=== PATIENT | female | born 1995 | race Caucasian/White ===

== ENCOUNTER 2017-09-14 18:18 | Emergency (ER) | END 2017-09-14 22:34 | disposition left against medical advice (07) ==

== ENCOUNTER 2018-11-21 15:32 | Emergency (ER) | payer MEDICAID, OTHER ==
[~2018-11-21] VITALS: Ht 157.5 cm; Wt 47.0 kg
[2018-11-21 15:54] VITALS: BP 161/117; PULSE 108; RESP 18; Ht 157.5 cm; Wt 47.0 kg
[2018-11-21] MEDS ORDERED: CEPH-443 PO (20:24)
[2018-11-21] MEDS ORDERED: SULF1TAB31 PO (20:24)
--- NOTE | 2018-11-21 20:26 | ERD ---
ER Documentation Chief Complaint Chief Complaint RIGHT FOOT/ANKLE REDNESS/PAIN X 2 DAYS HPI 23-year-old female presents with some redness and swelling around the right ankle for last 2 days. She did fall a few days ago she has large bruise on her left thigh but she does not remember injuring her right ankle. She has minimal pain is able to ambulate without limp. She denies fevers, vomiting, shortness breath or chest pain. Patient is admitted injection drug user of methamphetamine. ROS All systems reviewed and are negative except as per history of present illness. Medications Home Meds Active Scripts Cephalexin* (Keflex*) 500 Mg Capsule, 500 MG PO QID for 7 Days, CAP Prov:LUCY DONAHUE MD 11/21/18 Sulfamethoxazole/Trimethoprim* (Bactrim Ds* Tablet) 1 Each Tablet, 1 TAB PO BID for 7 Days, #14 TAB Prov:LUCY DONAHUE MD 11/21/18 Allergies Allergies: Coded Allergies: No Known Allergy (Unverified , 02/02/16) PMhx/Soc History of Surgery: No Anesthesia Reaction: No Hx Neurological Disorder: No Hx Respiratory Disorders: No Hx Cardiac Disorders: No Hx Psychiatric Problems: No Hx Miscellaneous Medical Probl: No Hx Alcohol Use: Yes (OCCASIONAL) Hx Substance Use: Yes (METH USER) Hx Tobacco Use: No Smoking Status: Never smoker FmHx Family History: No diabetes, No coronary disease, No other Physical Exam Vitals Vital Signs Date Temp Pulse Resp B/P (MAP) Pulse Ox O2 O2 Flow FiO2 Time Delivery Rate 11/21/18 98.4 108 18 161/117 100 15:54 (132) Physical Exam Const: No acute distress. Alert, [id number]. Head: Atraumatic Eyes: Normal Conjunctiva ENT: Normal External Ears, Nose and Mouth. Neck: Full range of motion. No meningismus. Resp: Clear to auscultation bilaterally Cardio: Regular rate and rhythm, no murmurs Abd: Soft, non tender, non distended. Normal bowel sounds Skin: No petechiae or rashes. Large bruising left thigh without bony tender ness, without limp. No erythema or warmth. There is some blanching redness around the right medial and lateral malleolus without effusion, bony tenderness, deformities, restricted range of motion weakness. No fluctuance. Cap refill is less than 2 seconds. Back: No midline or flank tenderness Ext: No cyanosis, or edema Neur: Awake and alert Psych: Normal Mood and Affect Results 24 hrs Current Medications Medications Dose Sig/Stephen Start Time Status Last (Trade) Ordered Route PRN Stop Time Admin Dose Reason Admin 1 tab ONCE ONCE 11/21/18 Trimethoprim/ PO 20:30 11/21/18 20:31 Sulfamethoxaz ole (Bactrim (Ds)) Cephalexin 500 mg ONCE ONCE 11/21/18 (Keflex) PO 20:30 11/21/18 20:31 Procedures/MDM Patient presents with some redness around the right ankle. Current signs or symptoms do not suggest endocarditis, myocarditis, sepsis, ostium myelitis, fracture, dislocation, as patient has minimal pain is amatory. She may have mild cellulitis. Will treat with Bactrim and Keflex, instructions for elevation, return precautions for fevers, vomiting, shortness of breath, new worsening symptoms with primary doctor. Patient was counseled on abstinence from injection drug use and primary care follow-up for testing for HIV, hepatitis, additional primary care evaluation. The patient was stable with no new complaints during the ER course. Clinically, there is no current evidence to suggest meningitis, sepsis, acute abdomen, pneumonia, stroke, acute coronary syndrome, pulmonary embolism, aortic dissection or any other emergent condition appearing to require further evaluation or hospitalization. Patient counseled regarding my diagnostic impression and care plan. Prior to discharge all questions answered. Pt agrees with treatment plan and understands strict return precautions. Pt is instructed to follow up with primary care provider within 24- 48 hours. Precautionary instructions provided including instructions to return t o the ER if not improving or for any worsening or changing symptoms or concerns. Disclaimer: Inadvertent spelling and grammatical errors are likely due to EHR/dictation software use and do not reflect on the overall quality of patient care. Also, please note that the electronic time recorded on this note does not necessarily reflect the actual time of the patient encounter. Departure Diagnosis: Primary Impression: Cellulitis Site of cellulitis: extremity Site of cellulitis of extremity: lower extremity Laterality: right Qualified Codes: L03.115 - Cellulitis of right lower limb Condition: Stable Patient Instructions: Cellulitis Additional Instructions: Elevate at home. Recheck for worsening redness, fevers, new worsening symptoms with primary care doctor. Avoid illicit drug use. TEEHEE,LUCY N. MD Nov 21, 2018 20:26
[2018-11-21] MEDS ORDERED: CEPHALEXIN 500 MG CAP PO ONE (20:30)
[2018-11-21] MEDS ORDERED: TRIMETHOPRIM/SULFAMETHOX (DS) TAB PO ONE (20:30)
== END 2018-11-21 20:36 | disposition home or self-care (01) ==
LOC: FTE 15:32
DX: S70.12XA Contusion of left thigh, initial encounter (principal); L03.115 Cellulitis of right lower limb; W19.XXXA Unspecified fall, initial encounter; Y92.9 Unspecified place or not applicable
CPT/HCPCS: Z7502; Z7610; 99283

== ENCOUNTER 2019-02-04 22:05 | Emergency (ER) | payer OTHER ==
[~2019-02-04] VITALS: Ht 160 cm; Wt 51.8 kg
[~2019-02-04 22:05] MED LIST: CEPH-443 PO; SULF1TAB31 PO
[2019-02-04 22:09] VITALS: BP 170/100; PULSE 104; RESP 20; Ht 160 cm; Wt 51.8 kg
[2019-02-05] MEDS ORDERED: ACET500C5 PO (00:14)
--- NOTE | 2019-02-05 00:18 | ERD ---
ER Documentation Chief Complaint Chief Complaint ring got stuck left 5th finger since yesterday, c/o pain/swelling HPI 23-year-old female with no reported past medical history presents to ED after having a small ring stuck to left fifth digit of left upper extremity. With complaint of pain and swelling to digit. Able to move and wiggle all fingers at the time of examination. She otherwise without complaint. ROS All systems reviewed and are negative except as per history of present illness. Medications Home Meds Active Scripts Acetaminophen* (Tylophen*) 500 Mg Capsule, 1 CAP PO Q6H PRN for PAIN AND OR ELEVATED TEMP, #20 CAP Prov:OBDULIA KABA PA-C 02/05/19 Cephalexin* (Keflex*) 500 Mg Capsule, 500 MG PO QID for 7 Days, CAP Prov:LUCY DONAHUE MD 11/21/18 Sulfamethoxazole/Trimethoprim* (Bactrim Ds* Tablet) 1 Each Tablet, 1 TAB PO BID for 7 Days, #14 TAB Prov:LUCY DONAHUE MD 11/21/18 Allergies Allergies: Coded Allergies: No Known Allergy (Unverified , 02/02/16) PMhx/Soc History of Surgery: No Anesthesia Reaction: No Hx Neurological Disorder: No Hx Respiratory Disorders: No Hx Cardiac Disorders: No Hx Psychiatric Problems: No Hx Miscellaneous Medical Probl: No Hx Alcohol Use: Yes (OCCASIONAL) Hx Substance Use: Yes (METH USER) Hx Tobacco Use: No Smoking Status: Never smoker FmHx Family History: No diabetes, No coronary disease, No other Physical Exam Vitals Vital Signs Date Temp Pulse Resp B/P (MAP) Pulse Ox O2 O2 Flow FiO2 Time Delivery Rate 02/04/19 98.9 104 20 170/100 98 22:09 (123) Physical Exam Const: No acute distress Head: Atraumatic Eyes: Normal Conjunctiva ENT: Normal External Ears, Nose and Mouth. Neck: Full range of motion. No meningismus. Resp: Clear to auscultation bilaterally Cardio: Regular rate and rhythm, no murmurs Abd: Soft, non tender, non distended. Normal bowel sounds Skin: No petechiae or rashes Back: No midline or flank tenderness Ext: No cyanosis, or edema, left fifth digit of hand with significant edema surrounding ring, tender to touch, able to wiggle fingers pre-and post ring removal, sensation intact to light touch pre-and post ring removal Neur: Awake and alert Psych: Normal Mood and Affect Procedures/MDM 23-year-old female with ring stuck to left fifth digit of left upper extremity. Ring successfully removed utilizing a ring cutter. Local anesthesia with lidocaine used. Ring came off without incident. Patient neurovascularly intact post procedure with relief of symptoms. DISPOSITION PLAN: We discussed follow up with the patient's primary care doctor within 24 to 48 hours. Patient counseled regarding my diagnostic impression and care plan. Prior to discharge all questions answered. Pt agrees with treatment plan and understands strict return precautions. Precautionary instructions provided including instructions to return to the ER if not improving or for any worsening or changing symptoms or concerns. Disclaimer: Inadvertent spelling and grammatical errors are likely due to EHR/dictation software use and do not reflect on the overall quality of patient care. Also, please note that the electronic time recorded on this note does not necessarily reflect the actual time of the patient encounter. Departure Diagnosis: Primary Impression: Finger injury Condition: Stable Patient Instructions: Sprain Finger Additional Instructions: Call your primary care doctor TOMORROW for an appointment during the next 2-3 days.See the doctor sooner or return here if your condition worsens before your appointment time. OBDULIA KABA PA-C Feb 05, 2019 00:18
== END 2019-02-05 00:42 | disposition home or self-care (01) ==
LOC: FTE 22:05
DX: S69.92XA Unspecified injury of left wrist, hand and finger(s), initial encounter (principal); W49.04XA Ring or other jewelry causing external constriction, initial encounter; Y92.9 Unspecified place or not applicable
CPT/HCPCS: 99282

== ENCOUNTER 2019-02-07 19:35 | Emergency (ER) | payer OTHER ==
[~2019-02-07] VITALS: Ht 160 cm; Wt 52.7 kg
[~2019-02-07 19:35] MED LIST changes: +ACET500C5 PO
[2019-02-07 19:37] VITALS: Ht 160 cm; Wt 52.7 kg
[2019-02-07] MEDS ORDERED: LIDOCAINE 1% (MDV) 20 ML INJ SC ONE (20:30)
[2019-02-07] MEDS ORDERED: BACITRACIN 0.9 GM OINT TOP ONE (20:30)
--- NOTE | 2019-02-07 20:45 | ERD ---
ER Documentation Chief Complaint Chief Complaint redness/pain to left 5th finger and piercing to right of back HPI 23 female presents with complaint of pain to the left fifth finger. Patient states that she had a ring removed recently and now it has been getting infected. Addition states there is a mass located on the PIP of the same finger. She also states that there is a piercing on her back which is gotten infected. Denies any fevers, chills, impaired range of motion, numbness, tingling. ROS All systems reviewed and are negative except as per history of present illness. Medications Home Meds Active Scripts Bacitracin* (Bacitracin Oint (UD)*) 1 Applic Oint, 1 APPLIC TOP BID, #1 TUB APPLY TO Prov:JUSTIN TYLER 02/07/19 Cephalexin* (Keflex*) 500 Mg Capsule, 500 MG PO QID for 7 Days, CAP Prov:JUSTIN TYLER 02/07/19 Sulfamethoxazole/Trimethoprim* (Bactrim Ds* Tablet) 1 Each Tablet, 1 TAB PO BID, #14 TAB Prov:JUSTIN TYLER 02/07/19 Acetaminophen* (Tylophen*) 500 Mg Capsule, 1 CAP PO Q6H PRN for PAIN AND OR ELEVATED TEMP, #20 CAP Prov:OBDULIA KABA PA-C 02/05/19 Cephalexin* (Keflex*) 500 Mg Capsule, 500 MG PO QID for 7 Days, CAP Prov:LUCY DONAHUE MD 11/21/18 Sulfamethoxazole/Trimethoprim* (Bactrim Ds* Tablet) 1 Each Tablet, 1 TAB PO BID for 7 Days, #14 TAB Prov:LUCY DONAHUE MD 11/21/18 Allergies Allergies: Coded Allergies: No Known Allergy (Unverified , 02/02/16) PMhx/Soc Medical and Surgical Hx: pt denies Medical Hx, pt denies Surgical Hx History of Surgery: No Anesthesia Reaction: No Hx Neurological Disorder: No Hx Respiratory Disorders: No Hx Cardiac Disorders: No Hx Psychiatric Problems: No Hx Miscellaneous Medical Probl: No Hx Alcohol Use: Yes (OCCASIONAL) Hx Substance Use: Yes (METH USER) Hx Tobacco Use: No Smoking Status: Never smoker FmHx Family History: No diabetes, No coronary disease, No other Physical Exam Vitals Vital Signs Date Temp Pulse Resp B/P (MAP) Pulse Ox O2 O2 Flow FiO2 Time Delivery Rate 02/07/19 97.9 120 20 145/92 99 19:37 (109) Physical Exam Const: No acute distress Head: Atraumatic Eyes: Normal Conjunctiva ENT: Normal External Ears, Nose and Mouth. Neck: Full range of motion. No meningismus. Resp: Clear to auscultation bilaterally Cardio: Regular rate and rhythm, no murmurs Abd: Soft, non tender, non distended. Normal bowel sounds Skin: No petechiae or rashes Back: No midline or flank tenderness. Piercing noted in the left lower quadrant with surrounding cellulitis. No discharge noted. Ext: Mass noted to the PIP of fifth left finger. There is no discharge noted. Full range of motion noted. There is no lymphatic streaking noted. Non-fusiform swelling of left finger. No pain on passive extension of left finger. No tenderness to palpation over flexor tendon. Neur: Awake and alert Psych: Normal Mood and Affect Results 24 hrs Laboratory Tests Test 02/07/19 20:56 02/07/19 21:53 Bedside Urine pH (LAB) 7.0 Bedside Urine Protein (LAB) 2+ Bedside Urine Glucose (UA) Negative Bedside Urine Ketones (LAB) 1+ Bedside Urine Blood Negative Bedside Urine Nitrite (LAB) Negative Bedside Urine Leukocyte Esterase (L Negative POC Beta HCG, Qualitative NEGATIVE Current Medications Medications Dose Sig/Stephen Start Time Status Last (Trade) Ordered Route PRN Stop Time Admin Dose Reason Admin Lidocaine 20 ml ONCE ONCE 02/07/19 DC (Xylocaine SC 20:30 02/07/19 1% (Mdv) 20 20:31 ml) Bacitracin 1 applic ONCE ONCE 02/07/19 DC (Bacitracin TOP 20:30 02/07/19 Oint (Ud)) 20:31 Procedures/MDM MDM: Earing was successfully removed from the back. Blister was incised and drained. There is no pain to passive extension, fusiform digit, or pain over the tendon. I have low suspicion for tenosynovitis, acute space infection, neurovascular compromise, compartment syndrome, osteomyelitis, or any other e mergent condition. Patient was given Rx for Bactrim and Keflex. Patient discharged with strict ER precautions. Patient advised to follow up with PMD. All questions answered at discharge. Departure Diagnosis: Primary Impression: Retained foreign body Additional Impression: Abscess Condition: Stable JUSTIN TYLER Feb 07, 2019 20:45
[2019-02-07] MEDS ORDERED: SULF1TAB31 PO (21:13)
[2019-02-07] MEDS ORDERED: BACITUD TOP (21:13)
[2019-02-07] MEDS ORDERED: CEPH-443 PO (21:13)
[2019-02-07 22:01] VITALS: BP 131/83; PULSE 113; RESP 18
== END 2019-02-07 22:02 | disposition home or self-care (01) ==
LOC: FTE 19:35
DX: S60.457A Superficial foreign body of left little finger, initial encounter (principal); L02.512 Cutaneous abscess of left hand; W49.04XA Ring or other jewelry causing external constriction, initial encounter; Y92.9 Unspecified place or not applicable
CPT/HCPCS: 26010; 81003; 81025; Z7502; Z7610

== ENCOUNTER 2019-02-09 13:14 | Emergency (ER) | payer OTHER ==
[~2019-02-09] VITALS: Ht 160 cm; Wt 51.7 kg
[~2019-02-09 13:14] MED LIST changes: +BACITUD TOP
[2019-02-09 13:28] VITALS: BP 127/79; PULSE 118; RESP 24; Ht 160 cm; Wt 51.7 kg
[2019-02-09] MEDS ORDERED: MUPI22OI2 TOP (13:43)
--- NOTE | 2019-02-09 14:09 | ERD ---
ER Documentation Chief Complaint Chief Complaint RE CHECK ( WOUND) HPI 23-year-old female presenting for wound check of the left ring finger and lower back. Patient is taking antibiotics for the last couple days. Her ring finger got infected after she was wearing a ring. Patient is homeless. Denies any medical problems. NKDA. Surgical history denies. Social history denies ROS All systems reviewed and are negative except as per history of present illness. Medications Home Meds Active Scripts Mupirocin* (Bactroban*) 2% -22 Gram Oint...g., 1 APPLIC TOP BID for 7 Days, EA Prov:MARGUERITE JENKINS PA-C 02/09/19 Bacitracin* (Bacitracin Oint (UD)*) 1 Applic Oint, 1 APPLIC TOP BID, #1 TUB APPLY TO Prov:JUSTIN TYLER 02/07/19 Cephalexin* (Keflex*) 500 Mg Capsule, 500 MG PO QID for 7 Days, CAP Prov:JUSTIN TYLER 02/07/19 Sulfamethoxazole/Trimethoprim* (Bactrim Ds* Tablet) 1 Each Tablet, 1 TAB PO BID, #14 TAB Prov:JUSTIN TYLER 02/07/19 Acetaminophen* (Tylophen*) 500 Mg Capsule, 1 CAP PO Q6H PRN for PAIN AND OR ELEVATED TEMP, #20 CAP Prov:OBDULIA KABA PA-C 02/05/19 Cephalexin* (Keflex*) 500 Mg Capsule, 500 MG PO QID for 7 Days, CAP Prov:LUCY DONAHUE MD 11/21/18 Sulfamethoxazole/Trimethoprim* (Bactrim Ds* Tablet) 1 Each Tablet, 1 TAB PO BID for 7 Days, #14 TAB Prov:LUCY DONAHUE MD 11/21/18 Allergies Allergies: Coded Allergies: No Known Allergy (Unverified , 02/02/16) PMhx/Soc Medical and Surgical Hx: pt denies Medical Hx, pt denies Surgical Hx History of Surgery: No Anesthesia Reaction: No Hx Neurological Disorder: No Hx Respiratory Disorders: No Hx Cardiac Disorders: No Hx Psychiatric Problems: No Hx Miscellaneous Medical Probl: No Hx Alcohol Use: Yes (OCCASIONAL) Hx Substance Use: Yes (METH USER) Hx Tobacco Use: No Smoking Status: Never smoker FmHx Family History: No diabetes, No coronary disease, No other Physical Exam Vitals Vital Signs Date Temp Pulse Resp B/P (MAP) Pulse Ox O2 O2 Flow FiO2 Time Delivery Rate 02/09/19 98.8 118 24 127/79 99 13:28 (95) Physical Exam GENERAL: The patient is well-appearing, well-nourished, in no acute distress CHEST: Clear to auscultation bilaterally. There are no rales, wheezes or rhonchi. HEART: Regular rate and rhythm. No murmurs, clicks, rubs or gallops. EXTREMITIES: Equal pulses bilaterally. There is no peripheral clubbing, cyanosis or edema. No focal swelling or erythema. Full range of motion. NEUROLOGIC: Alert and oriented. Cranial nerves II through XII intact. Motor strength in all 4 extremities with 5 out of 5 strength. Sensation grossly intact. SKIN: Healing skin ulceration noted of the left index finger at the site of the previous ring. No purulence. Mild serous drainage. No surrounding erythema or fluctuance. No sausage finger. Procedures/MDM MDM: 23-year-old female presenting for wound care. Patient is told to clean the site with soap and water and apply mupirocin. She is told to continue taking oral antibiotics as prescribed. Patient is told if symptoms change or worsen to return immediately to the ER. All questions answered at discharge Departure Diagnosis: Primary Impression: Follow-up examination for injury Condition: Stable Patient Instructions: Wound Check, Lac F/U (No Infection) Referrals: [facility] (PCP) Additional Instructions: FOLLOW UP WITH YOUR PRIMARY CARE PHYSICIAN TOMORROW.Return to this facility if you are not improving as expected. MARGUERITE JENKINS PA-C Feb 09, 2019 14:09
== END 2019-02-09 14:26 | disposition home or self-care (01) ==
LOC: FTE 13:14
DX: Z48.01 Encounter for change or removal of surgical wound dressing (principal)